=== PATIENT | female | born 1990 | race Caucasian/White ===

== ENCOUNTER 2016-10-13 16:43 | Emergency (ER) | payer BC ==
[2016-10-13 17:22] VITALS: BP 102/82
--- NOTE | 2016-10-13 17:26 | UC ---
Lower Extremity/Ankle HPI - HPI Summary HPI Summary: twisted left ankle yesterday---lateral pain, pain with walking - History of Current Complaint Chief Complaint: UCLowerExtremity Stated Complaint: LEFT ANKLE INJURY Time Seen by Provider: 10/13/16 17:20 Hx Obtained From: Patient Hx Last Menstrual Period: 09/22/16 ?: No Onset/Duration: Sudden Onset, Lasting Days - 1, Still Present Severity Initially: Moderate Severity Currently: Mild Pain Intensity: 4 Pain Scale Used: 0-10 Numeric Aggravating Factor(s): Standing, Ambulation Alleviating Factor(s): Rest, Elevation Able to Bear Weight: Yes - with discomfort - Allergies/Home Medications Allergies/Adverse Reactions: Allergies Allergy/AdvReac Type Severity Reaction Status Date / Time Clarithromycin Allergy Intermediate Rash Verified 10/13/16 17:16 CATS Allergy Mild Congestion Uncoded 10/13/16 17:16 PEANUTS Allergy Mild GI Upset Uncoded 10/13/16 17:16 SEASONAL Allergy Mild Congestion Uncoded 10/13/16 17:16 Home Medications: Home Medications Beclomethasone Dipropionate (N [Qnasl] 80 mcg NA DAILY 10/13/16 [History Confirmed 10/13/16] PMH/Surg Hx/FS Hx/Imm Hx Previously Healthy: No Endocrine History Of: Denies: Diabetes, Thyroid Disease Cardiovascular History Of: Denies: Cardiac Disorders, Hypertension Respiratory History Of: Denies: COPD, Asthma GI/ History Of: Reports: Gastroesophageal Reflux Denies: Ulcer - Surgical History Surgical History: Yes Surgery Procedure, Year, and Place: T&A, WISDOM TEETH EXTRACTION, TOOTH IMPLANT - Family History Known Family History: Positive: Hypertension - mother, Diabetes - father Negative: Cardiac Disease - Social History 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 Lives: With Family Alcohol Use: None Substance Use Type: None Smoking Status (MU): Never Smoked Tobacco Have You Smoked in the Last Year: No - Immunization History Most Recent Tetanus Shot: <5 YEARS Review of Systems Constitutional: Negative Skin: Negative Eyes: Negative ENT: Negative Respiratory: Negative Cardiovascular: Negative Gastrointestinal: Negative Genitourinary: Negative Motor: Negative Neurovascular: Negative Musculoskeletal: Arthralgia - left lateral ankle anterior to malleolus Neurological: Negative Psychological: Negative All Other Systems Reviewed And Are Negative: Yes Physical Exam Triage Information Reviewed: Yes Appearance: Well-Appearing, No Pain Distress, Well-Nourished Vital Signs: Initial Vital Signs Temp 97.8 F 10/13/16 17:18 Pulse 83 10/13/16 17:18 Resp 16 10/13/16 17:18 BP 102/82 10/13/16 17:18 Pulse Ox 99 10/13/16 17:18 Vital Signs Reviewed: Yes Eye Exam: Normal Eyes: Positive: Conjunctiva Clear ENT Exam: Normal ENT: Positive: Normal ENT inspection, Hearing grossly normal. Negative: Nasal congestion, Nasal drainage, Trismus, Muffled/hoarse voice Dental Exam: Normal Neck exam: Normal Neck: Positive: Supple, Nontender Respiratory Exam: Normal Respiratory: Positive: Chest non-tender, No respiratory distress, No accessory muscle use Cardiovascular Exam: Normal Cardiovascular: Positive: RRR, Pulses Normal, Brisk Capillary Refill Musculoskeletal Exam: Other Musculoskeletal: Positive: Strength Limited @, ROM Limited @, Edema @ - left lateral ankle Neurological Exam: Normal Neurological: Positive: Alert, Muscle Tone Normal Psychological Exam: Normal Skin Exam: Normal Diagnostics - Radiology No standard instances Xray Interpretation: No Acute Changes - soft tissue swelling Radiology Interpretation Completed By: Radiologist Lower Extremity Course/Dx - Course Course Of Treatment: lauro, gel, crutches, rice, ibuprofen, follow with Dr. Krishnamurthy - Differential Dx/Diagnosis Differential Diagnosis/HQI/PQRI: Contusion, Fracture (Closed), Sprain, Strain Provider Diagnoses: Left ankle sprain Discharge - Discharge Plan Condition: Stable Disposition: HOME Patient Education Materials: Ibuprofen (By mouth), Ankle Sprain (ED), Crutch Instructions (ED), Ankle Stirrup Splint (ED) Referrals: Ean Krishnamurthy MD [Medical Doctor] - 4 Days
--- NOTE | 2016-10-13 18:21 | RAD ---
INDICATION: Lateral ankle pain after rolling injury COMPARISON: None. TECHNIQUE: 3 views of the left ankle were obtained. FINDINGS: The well corticated bones exhibit normal alignment. Joint spaces appear maintained. No fracture is seen. IMPRESSION: Normal ankle radiograph. If the patient's symptoms persist, follow-up imaging is recommended.
== END 2016-10-13 18:47 | disposition home or self-care (01) ==
LOC: UCCORT 16:43
DX: S93.402A Sprain of unspecified ligament of left ankle, initial encounter (principal); X50.9XXA Other and unspecified overexertion or strenuous movements or postures, initial encounter
CPT/HCPCS: 84702; 99213; G0463

== ENCOUNTER 2017-11-07 20:47 | Inpatient (IN) | payer BC, MEDICAID ==
[2017-11-07] MEDS ORDERED: Nalbuphine* 10 MG/ML 1 ML VIAL IM ONE (21:25)
[2017-11-07] MEDS ORDERED: Promethazine INJ(RESTRICTED)* 25 MG/ML 1 ML VIAL IM ONE (21:25)
--- NOTE | 2017-11-07 21:36 | PN ---
L&D Outpatient: Visit - Reproductive Information Estimated Due Date: 11/08/17 Gestational Age: 39 Weeks and 6 Days : 1 - Reason for Visit Visit Reason: Pt presents for evaluation of prolonged latent labor and to discuss options for rest given no sleep x 2 days - Antepartal Records Antepartal Record: Reviewed, Uncomplicated - Patient History Patient History Significant: Yes Patient History Significant For: Hx OCD. Has used Lexapro in the past but not during Hx environmental, seasonal and food allergies L&D Outpatient: ROS - Review of Systems Constitutional: Uncomfortable - with UCs CV Complaint: No Respiratory: Shortness of Breath: No Gastrointestinal: No Nausea/Vomiting, Normal Bowel Movement Genitourinary: No Dysuria, No Bleeding, No Leaking Fluid Musculoskeletal: Contractions Movement: Normal L&D Outpatient: Exam Vitals - Most Recent: BP: 121/80 HR: 99 RR: 20 T: 97.8 O2Sat: 100% on RA - Cervical Exam Cervical Exam: 1cm/70%/vtx -2 - Abdominal Exam Abdomen Exam: Non-Tender, Fundal Height Consistent with Dates Abdomen Exam Comment: UCs q 3-7 minutes, mild to moderate - Membranes Membrane Status: Intact - Ultrasound/Biophysical Profile Ultrasound Status: Not Done L&D Outpatient: EFM - External Monitor Findings Baseline Heart Rate: 135 External Monitor Findings: Accelerations Present, No Pattern of Variable or Late Decelerations, Variability Moderate, Baseline Stable External Monitor Findings Comment: No evidence of metabolic acidemia L&D Outpatient: Asses/Plan Assessment: A: IUP at 39-6/7 with prolonged latent labor No evidence of metabolic acidemia P: Offered active management with IV pitocin and epidural vs. trial of therapeutic rest with IM Nubain/Phenergan. PARQ both options and all questions answered. At this time pt would like to try therapeutic rest and re-eval in AM unless spontaneous active labor before.
[2017-11-08] MEDS ORDERED: Promethazine INJ(RESTRICTED)* 25 MG/ML 1 ML VIAL IM ONE (04:21)
[2017-11-08] MEDS ORDERED: Nalbuphine* 10 MG/ML 1 ML VIAL IM ONE (04:21)
--- NOTE | 2017-11-08 04:30 | HP ---
General Information - General Information Maternal Age: 27 Grav: 1 Para: 0 SAB: 0 IEA: 0 Estimated Due Date: 11/08/17 Determined By: Early Ultrasound Gestational Age in Weeks and Days: 39 Weeks and 6 Days Maternal Blood Type and Rh: A Positive - Results this Serology/RPR Result: Non-Reactive Rubella Result: Immune HBsAg Result: Negative HIV Result: Negative GBS Culture Result: Negative Past Medical History Delivery History: See Records Delivery History Comment: primip Pertinent Past Medical History: See Records Past Medical History Comment: Hx of OCD. Has used Lexapro in the past but not during Environmental, seasonl and food allergies Pertinent Past Surgical History: See Records Past Surgical History Comment: 2010 [place] tooth extraction 2010 Tonsillectomy Pertinent Family History: See Records Family History Comment: Father: GERD Mother: Endometriosis Sister: ADHD Mother and father both adopted. Unknown hx for extended family - Antepartal Records Antepartal Records: Reviewed, Uncomplicated Review of Systems Constitutional: Uncomfortable - with UCs CV Complaint: No Respiratory: Shortness of Breath: No Gastrointestinal: No Nausea/Vomiting, Normal Bowel Movement Genitourinary: No Dysuria, No Bleeding, No Leaking Fluid Musculoskeletal: Contractions Neurological: No Headache, No Visual Changes Movement: Normal Exam Allergies/Adverse Reactions: Allergies clarithromycin Allergy (Intermediate, Verified 11/07/17 21:19) Rash CATS Allergy (Mild, Uncoded 11/07/17 21:19) Congestion PEANUTS Allergy (Mild, Uncoded 11/07/17 21:19) GI Upset SEASONAL Allergy (Mild, Uncoded 11/07/17 21:19) Congestion BP: 121/80 HR: 99 RR 20 T: 97.8 O2sat: 100% on RA - Measurements Height: 5 ft 5 in Weight: 158 lb Weight in lbs: 158 Body Mass Index (BMI): 26.2 Pre- Weight: 132 lb Weight Gained This : 26 lbs and 0 ozs - Exam Abdomen: No Upper Quadrant Pain Breast: Breast Exam Deferred CVA: No CVA Tenderness Extremities: No Edema Heart: Normal Rhythm/Heart Sounds HEENT: No Significant Findings Lungs: Clear Bilaterally Rectal: Rectal Exam Deferred Reflexes: DTR 2+ Thyroid: No Thyromegaly - Abdominal Exam Abdomen Exam: Non-Tender, Fundal Height Consistent with Dates - Ultrasound/Biophysical Profile Ultrasound Status: Not Done Targeted Exam Findings See L&D Outpatient Visit Provider Note for Findings: Yes Estimated Weight: EFW 7.5lbs by Endy Cervical Exam: 2cm Effacement: 90% Station: -2 Presenting Part: Vertex Membrane Status: Intact Sterile Speculum Exam: Not done Bleeding/Discharge: None EFM Findings - External Monitor Findings Baseline Heart Rate: 130 External Monitor Findings: Accelerations Present, No Pattern of Variable or Late Decelerations, Variability Moderate, Baseline Stable External Monitor Findings Comment: No evidence of metabolic acidemia Contractions: Irregular, Mild, Moderate Assessment/Plan - Reason for Visit Reason for Visit: Pt with prolonged latent labor > 24 hours. S/P therapeutic rest with Nubain and Phenergan with good benefit. Pt requests repeat dose and consider active management in the morning. - Obstetrical Risk Factors Risk Factors Comment: None - Plan Plan: Observe, Early Labor Plan Comment: Admit. Plan repeat dose of Nubain/Phenergan. Consider active management with IV pitocin/epidural of prolonged latent labor in the morning. Report to Liz Turpin CNM who will be assuming care at 0800 - Date/Time of Admission Date of Admission: 11/08/17 Time of Admission: 04:36
[2017-11-08] MEDS ORDERED: Oxytocin in LR* 20 UNITS/1,000 ML BAG IVPB ONE (11:46)
[2017-11-08] MEDS ORDERED: Oxytocin in LR* 20 UNITS/1,000 ML BAG IVPB SCH (12:00)
--- NOTE | 2017-11-08 12:05 | PN ---
Progress Note - Progress Note Date of Service: 11/08/17 SOAP: Subjective: [Pt continues to report feeling very uncomfortable with ctx, although they have spaced out. She is very anxious at the thought of going home, states "I don't think I can take another night of no sleep." Reports active FM. Denies sx SROM. Reports she noticed mucus and bloody show when wiping. ] Objective: [VSS, afebrile FHR Cat I (baseline 145, + accels, no decels, mod variability) Ctx Q 8-10 minutes, mild to moderate, last 90-120 seconds Cervical exam: 2 cm, 90%, -1, posterior, soft, Marin's score of 8] Assessment: [27 yo at 40 0/7 weeks gestation, in prolonged prodromal labor] Plan: [Discussed options with pt and at length, including discharge home to await onset of active labor versus augmentation of labor. Discussed potential risks of augmentation, including failed induction, longer length of stay. Pt expresses strong preference for staying and augmenting labor. Given that she is full term, w/ favorable Marin's score and already rosa, this seems like a reasonable option. Will do trial of Pitocin augmentation. ]
[2017-11-08 12:19] LABS: ABS Basophils 0.1 10^3/ul (0-0.2); ABS Eosinophils 0.1 10^3/ul (0-0.6); ABS Lymphocytes 1.4 10^3/ul (1.0-4.8); ABS Monocytes 0.7 10^3/ul (0-0.8); ABS Neutrophils 8.5 10^3/ul (1.5-7.7); ABS Nucleated RBC 0 10^3/ul; Eosinophil % 1.1 % (0-6); Hematocrit 36 % (35-47); Hemoglobin 12.6 g/dl (12.0-16.0); Mean Corpuscular HGB Conc 35 g/dl (31-36); Mean Corpuscular Hemoglobin 32 pg (27-31); Mean Corpuscular Volume 90 fL (80-97); Nucleated Red Blood Cells % 0; Platelet Count 270 10^3/ul (150-450); Red Blood Count 3.97 10^6/ul (4.00-5.40); Red Cell Distribution Width 12 % (10.5-15); White Blood Count 10.8 10^3/ul (3.5-10.8)
[2017-11-08] MEDS: Cetirizine* 10 MG TAB PO SCH (15:46)
[2017-11-08] MEDS ORDERED: OBEPIDURAL* 250 ML EPIDURAL ONE (15:49)
[2017-11-08] MEDS ORDERED: Sodium Citrate/Citric Acid* 15 ML UDC PO PRN (16:44)
[2017-11-08] MEDS ORDERED: EPHEDrine (Pressors)* 50 MG/ML VIAL IV PUSH PRN ×2 (16:44)
[2017-11-08] MEDS ORDERED: Phenylephrine IV* 40 MCG/ML 10 ML SYRINGE IV PUSH PRN ×2 (16:44)
[2017-11-08] MEDS ORDERED: Famotidine TAB* 20 MG PO PRN (16:44)
[2017-11-08] MEDS ORDERED: OBEPIDURAL* 250 ML EPIDURAL SCH (17:00)
[2017-11-09] MEDS ORDERED: Acetaminophen TAB* 325 MG PO PRN (05:36)
[2017-11-09] MEDS ORDERED: Glycerin ADULT SUPP PR PRN (05:36)
[2017-11-09] MEDS ORDERED: Witch Hazel PAD* JAR TOPICAL PRN (05:36)
[2017-11-09] MEDS ORDERED: Dibucaine 1% 28.35 GM TUBE PR PRN (05:36)
--- NOTE | 2017-11-09 05:58 | PROCNOTE ---
[facility] OB: Delivery Note - Delivery A Date of : 11/09/17 Time of : 04:18 Score 1 Minute: 8 Score 5 Minutes: 9 Gestational Age in Weeks and Days at Delivery: 40 Weeks and 1 Days Delivery Method: Spontaneous Vaginal Labor: Spontaneous Did Patient attempt ?: N/A, No Previous Amniotic Fluid: Clear Anesthesia/Analgesia: CEI for Labor Delivered By: Liz Madrigal - Nursery Level of Nursery: Regular/Bedside - Perineum Perineal Injury: 2nd Degree Perineal Repair: By Delivering Practioner - Events Delivery Events of Note: Pitocin During Labor - Additional Delivery Notes Additional Delivery Notes: Pt admitted to hospital in prolonged prodromal labor at 40 weeks gestation. After receiving two rounds of therapeutic rest, she had progressed to 2 cm. At that time contractions had spaced out but were still painful. Pt desired augmentation of labor, Pitocin initiated. Pt progressed in labor and after trying nonpharmacologic methods and Nitronox, pt requested and received epidural which provided good relief. Pt progressed to full dilation and initiated pushing after laboring down. Forebag ruptured during pushing. Pt pushed with good effort and after about 2 hours of pushing delivered a viable female , "October," with Apgars of 8 and 9. Pt sustained small perineal laceration and right labial laceration. Repair completed in the usual fashion with 3-0 Rapide and 4-0 Vicryl sutures with good hemostasis. During repair clots expressed from lower uterine segment. EBL 400. Pt and stable at this time, infant .
[2017-11-09] MEDS: Cetirizine* 10 MG TAB PO SCH (09:37)
[2017-11-09] MEDS: Docusate CAP* 100 MG PO SCH ×3 (09:37→20:48)
[2017-11-09] MEDS: Ibuprofen TAB* 600 MG PO PRN ×2 (09:38→16:10)
[2017-11-10] MEDS: Ibuprofen TAB* 600 MG PO PRN ×3 (03:11→19:51)
[2017-11-10 06:21] LABS: ABS Basophils 0.1 10^3/ul (0-0.2); ABS Eosinophils 0.2 10^3/ul (0-0.6); ABS Lymphocytes 1.6 10^3/ul (1.0-4.8); ABS Monocytes 0.7 10^3/ul (0-0.8); ABS Neutrophils 10.1 10^3/ul (1.5-7.7); ABS Nucleated RBC 0 10^3/ul; Eosinophil % 1.6 % (0-6); Hematocrit 27 % (35-47); Hemoglobin 9.4 g/dl (12.0-16.0); Mean Corpuscular HGB Conc 35 g/dl (31-36); Mean Corpuscular Hemoglobin 32 pg (27-31); Mean Corpuscular Volume 91 fL (80-97); Mean Platelet Volume 7.9 um3 (7.4-10.4); Nucleated Red Blood Cells % 0; Platelet Count 206 10^3/ul (150-450); Red Blood Count 2.95 10^6/ul (4.00-5.40); Red Cell Distribution Width 12 % (10.5-15); White Blood Count 12.7 10^3/ul (3.5-10.8)
[2017-11-10] MEDS: Docusate CAP* 100 MG PO SCH ×3 (08:30→19:51)
[2017-11-10] MEDS: Ferrous Gluconate TAB* 324 MG TAB PO SCH ×2 (08:30→19:51)
[2017-11-10] MEDS: Cetirizine* 10 MG TAB PO SCH (08:30)
--- NOTE | 2017-11-10 11:34 | PTEDU ---
Patient Name: JOSH MARTINEZ JOSH MARTINEZ selected video: Follow Me Mum: [facility] Successful to view on 2017 at 11:33:38 AM [id number]
[2017-11-11] MEDS: Ibuprofen TAB* 600 MG PO PRN ×2 (04:35→10:44)
[2017-11-11 08:06] VITALS: BP 107/67
[2017-11-11] MEDS: Cetirizine* 10 MG TAB PO SCH (10:45)
[2017-11-11] MEDS: Ferrous Gluconate TAB* 324 MG TAB PO SCH (10:46)
[2017-11-11] MEDS: Docusate CAP* 100 MG PO SCH (10:46)
== END 2017-11-11 11:45 | disposition home or self-care (01) | DRG 560 ==
LOC: MCHOBOUT 20:47 → MCHOB 11-08 04:23
PROVIDERS: ADMIT Midwife; ATTEND Midwife
PROC: 10E0XZZ Delivery of Products of Conception, External Approach (ICD-10-PCS; principal; 2017-11-09)
PROC: 0KQM0ZZ Repair Perineum Muscle, Open Approach (ICD-10-PCS; 2017-11-09)
DX: O63.0 Prolonged first stage (of labor) (principal); O70.1 Second degree perineal laceration during delivery; O90.81 Anemia of the puerperium; D64.9 Anemia, unspecified; Z3A.40 40 weeks gestation of pregnancy; Z37.0 Single live birth
CPT/HCPCS: 36415; 85025; 86850; 86900; 86901; A9270-GY; J2300; J2550

== ENCOUNTER 2018-10-03 17:30 | Emergency (ER) | payer BC ==
[2018-10-03 18:13] VITALS: BP 117/72
--- NOTE | 2018-10-03 18:27 | UC ---
Throat Pain/Nasal Roberto HPI - HPI Summary HPI Summary: 27-year-old woman complaining of sore throat and upper respiratory tract infection symptoms for 3 days. Throat hurts more when she swallows. Overall she feels sick. She has taken some ibuprofen which does help some with the symptoms. Her daughter has been sick and is on antibiotics. Patient breast feeds her daughter who is 11 months old. Her has also been ill for more than a week. No shortness of breath or chest congestion. - History of Current Complaint Chief Complaint: UCGeneralIllness Stated Complaint: SORE THROAT, SINUS COMPLAINT Time Seen by Provider: 10/03/18 18:03 Hx Last Menstrual Period: 09/22/16 Pain Intensity: 5 - Allergies/Home Medications Allergies/Adverse Reactions: Allergies Allergy/AdvReac Type Severity Reaction Status Date / Time clarithromycin Allergy Intermediate Rash Verified 10/03/18 18:05 CATS Allergy Mild Congestion Uncoded 10/03/18 18:05 PEANUTS Allergy Mild GI Upset Uncoded 10/03/18 18:05 SEASONAL Allergy Mild Congestion Uncoded 10/03/18 18:05 Home Medications: Home Medications Escitalopram Oxalate [Lexapro 10 mg] 10 mg PO BEDTIME 10/03/18 [History Confirmed 10/03/18] Ibuprofen TAB* [Advil TAB*] 600 mg PO Q6H PRN 10/03/18 [History Confirmed ] PMH/Surg Hx/FS Hx/Imm Hx Previously Healthy: Yes - Surgical History Surgical History: Yes Surgery Procedure, Year, and Place: T&A, WISDOM TEETH EXTRACTION, TOOTH IMPLANT - Family History Known Family History: Positive: Hypertension - mother, Diabetes - father Negative: Cardiac Disease - Social History Alcohol Use: Weekly Substance Use Type: None Smoking Status (MU): Never Smoked Tobacco Have You Smoked in the Last Year: No - Immunization History Most Recent Influenza Vaccination: 04/02/17 Most Recent Tetanus Shot: <5 YEARS Most Recent Pneumonia Vaccination: Unknown Review of Systems All Other Systems Reviewed And Are Negative: Yes Constitutional: Positive: Negative Skin: Positive: Negative Eyes: Positive: Negative ENT: Positive: Sore Throat, Nasal Discharge, Sinus Congestion Respiratory: Positive: Negative Cardiovascular: Positive: Negative Gastrointestinal: Positive: Negative Motor: Positive: Negative Neurovascular: Positive: Negative Musculoskeletal: Positive: Negative Neurological: Positive: Negative Psychological: Positive: Negative Is Patient Immunocompromised?: No Physical Exam Triage Information Reviewed: Yes Appearance: No Pain Distress, Well-Nourished, Ill-Appearing - MILD Vital Signs: Initial Vital Signs Temp 98.8 F 10/03/18 18:09 Pulse 92 10/03/18 18:09 Resp 16 10/03/18 18:09 BP 117/72 10/03/18 18:09 Pulse Ox 98 10/03/18 18:09 Vital Signs Reviewed: Yes Eye Exam: Normal Eyes: Positive: Conjunctiva Clear ENT: Positive: Pharyngeal erythema, Nasal congestion, Nasal drainage, TMs normal Neck: Positive: Supple Respiratory: Positive: Lungs clear, Normal breath sounds, No respiratory distress Cardiovascular: Positive: RRR Musculoskeletal Exam: Normal Musculoskeletal: Positive: Strength Intact, ROM Intact Neurological Exam: Normal Neurological: Positive: Alert, Muscle Tone Normal Psychological Exam: Normal Psychological: Positive: Age Appropriate Behavior Skin Exam: Normal Throat Pain/Nasal Course/Dx - Course Course Of Treatment: DISCUSSED VIRAL VERSES BACTERIAL INFECTION AND THE ROLE OF ANTIBIOTICS. THE PATIENT PREFERS TO BE ON ANTIBIOTICS AT THIS TIME. - Differential Dx/Diagnosis Provider Diagnosis: Upper respiratory infection Discharge - Sign-Out/Discharge Documenting (check all that apply): Patient Departure All imaging exams completed and their final reports reviewed: No Studies - Discharge Plan Condition: Stable Disposition: HOME Prescriptions: Amoxicillin PO (*) [Amoxicillin 875 MG (*)] 875 mg PO BID #19 tab Patient Education Materials: Upper Respiratory Infection (ED) Referrals: Elidia ADKINS,Azul Lemus [Primary Care Provider] - Additional Instructions: FOLLOW UP WITH YOUR DOCTOR IF NOT COMPLETELY IMPROVED. GET RECHECKED SOONER IF YOUR CONDITION WORSENS OR ANY QUESTIONS OR CONCERNS. - Billing Disposition and Condition Condition: STABLE Disposition: Home
[2018-10-03] MEDS ORDERED: Amoxicillin PO (*) 500 MG CAP PO ONE (18:29)
== END 2018-10-03 18:34 | disposition home or self-care (01) ==
LOC: UCCORT 17:30
DX: J06.9 Acute upper respiratory infection, unspecified (principal); J30.81 Allergic rhinitis due to animal (cat) (dog) hair and dander; J30.2 Other seasonal allergic rhinitis; Z88.1 Allergy status to other antibiotic agents; Z91.010 Allergy to peanuts
CPT/HCPCS: 99212; A9270-GY; G0463

== ENCOUNTER 2018-10-16 18:51 | Emergency (ER) | payer BC ==
[2018-10-16 19:16] VITALS: BP 125/72
--- NOTE | 2018-10-16 19:41 | UC ---
Throat Pain/Nasal Roberto HPI - HPI Summary HPI Summary: Last night had terrrible headache with sore throat. Thought it was allergies. Woke this morning feeling horrible. Feeling generally ill. Took ibuprofen around 2:45 pm, helped a little. - History of Current Complaint Chief Complaint: UCGeneralIllness Stated Complaint: ST,HAY,BODY ACHES,FEVER Time Seen by Provider: 10/16/18 19:14 Hx Obtained From: Patient Hx Last Menstrual Period: 2 years ago ?: No Onset/Duration: Sudden Onset, Lasting Days Severity: Severe Pain Intensity: 7 Associated Signs & Symptoms: Positive: Dysphagia, Fever - Allergies/Home Medications Allergies/Adverse Reactions: Allergies Allergy/AdvReac Type Severity Reaction Status Date / Time clarithromycin Allergy Intermediate Rash Verified 10/16/18 19:16 CATS Allergy Mild Congestion Uncoded 10/16/18 19:16 PEANUTS Allergy Mild GI Upset Uncoded 10/16/18 19:16 SEASONAL Allergy Mild Congestion Uncoded 10/16/18 19:16 PMH/Surg Hx/FS Hx/Imm Hx Previously Healthy: Yes - Surgical History Surgical History: Yes Surgery Procedure, Year, and Place: T&A, WISDOM TEETH EXTRACTION, TOOTH IMPLANT - Family History Known Family History: Positive: Hypertension - mother, Diabetes - father Negative: Cardiac Disease - Social History Alcohol Use: Weekly Substance Use Type: None Smoking Status (MU): Never Smoked Tobacco Have You Smoked in the Last Year: No - Immunization History Most Recent Influenza Vaccination: 04/02/17 Most Recent Tetanus Shot: <5 YEARS Most Recent Pneumonia Vaccination: Unknown Review of Systems All Other Systems Reviewed And Are Negative: Yes Constitutional: Positive: Fever, Fatigue ENT: Positive: Sore Throat Respiratory: Positive: Cough Neurological: Positive: Headache Is Patient Immunocompromised?: No Physical Exam Triage Information Reviewed: Yes Appearance: Well-Nourished, Ill-Appearing, Pain Distress Vital Signs: Initial Vital Signs Temp 101.0 F 10/16/18 19:11 Pulse 101 10/16/18 19:11 Resp 18 10/16/18 19:11 BP 125/72 10/16/18 19:11 Pulse Ox 100 10/16/18 19:11 Vital Signs Reviewed: Yes Eye Exam: Normal ENT: Positive: Pharyngeal erythema, TM bulging, Tonsillar swelling Dental Exam: Normal Neck exam: Normal Respiratory Exam: Normal Respiratory: Positive: Chest non-tender, Lungs clear, Normal breath sounds Cardiovascular Exam: Normal Cardiovascular: Positive: No Murmur, Pulses Normal, Tachycardia Abdominal Exam: Normal Musculoskeletal Exam: Normal Neurological Exam: Normal Psychological Exam: Normal Skin Exam: Normal Throat Pain/Nasal Course/Dx - Course Course Of Treatment: hx obtained, exam performed ,meds reviewed, rapid strep obtained and was negative, rapid flu obtained and was neagtive, treated for sinusitis and recommend follow up if not improving. - Differential Dx/Diagnosis Differential Diagnosis/HQI/PQRI: Influenza, Laryngitis, Pharyngitis, Sinusitis Provider Diagnosis: Sinusitis Discharge - Sign-Out/Discharge Documenting (check all that apply): Patient Departure All imaging exams completed and their final reports reviewed: No Studies - Discharge Plan Condition: Stable Disposition: HOME Prescriptions: Azithromycin TAB* [Zithromax TAB (Z-MARTINE) 250 mg #6 tabs] 250 mg PO DAILY #4 tab Patient Education Materials: Sinusitis (ED) Referrals: Elidia ADKINS,Azul Lemus [Primary Care Provider] - Additional Instructions: 1. take the medication as prescribed. 2. Salt water gargles and nasal saline spray 3. Increase fluids and get rest. 4. Follow up if needed. - Billing Disposition and Condition Condition: STABLE Disposition: Home - Attestation Statements Provider Attestation: I was available for consult. This patient was seen by the PRIYANKA. The patient was not presented to, seen by, or examined by me. -Aleida
[2018-10-16 20:20] LABS: Influenza A Molecular NEGATIVE (Negative); Influenza B Molecular NEGATIVE (Negative)
== END 2018-10-16 20:32 | disposition home or self-care (01) ==
LOC: UCCORT 18:51
DX: J32.9 Chronic sinusitis, unspecified (principal); Z88.1 Allergy status to other antibiotic agents; Z91.010 Allergy to peanuts; Z91.09 Other allergy status, other than to drugs and biological substances
CPT/HCPCS: 87651; 99212; G0463

== ENCOUNTER 2019-11-09 12:35 | Inpatient (IN) ==
[2019-11-09] MEDS ORDERED: Lactated Ringers 1000 ml BAG 1,000 ML IV ONE (13:19)
[2019-11-09] MEDS ORDERED: Lactated Ringers 1000 ml BAG 1,000 ML IV SCH (14:00)
[2019-11-09] MEDS ORDERED: Oxytocin in LR 20 UNITS/1,000 ML BAG IVPB SCH (14:00)
[2019-11-09 14:01] LABS: ABS Eosinophils 0.2 10^3/ul (0-0.6); ABS Lymphocytes 1.4 10^3/ul (1.0-4.8); ABS Monocytes 0.5 10^3/ul (0-0.8); Eosinophil % 3.1 %; Hematocrit 30 % (35-47); Hemoglobin 10.2 g/dL (12.0-16.0); Lymphocyte % 17.6 %; Mean Corpuscular HGB Conc 34 g/dL (31-36); Mean Corpuscular Hemoglobin 28 pg (27-31); Mean Corpuscular Volume 81 fL (80-97); Mean Platelet Volume 8.1 fL (7.4-10.4); Platelet Count 270 10^3/uL (150-450); Red Blood Count 3.73 10^6 /uL (3.70-4.87); Red Cell Distribution Width 15 % (10-15); White Blood Count 7.7 10^3/uL (3.5-10.8)
[2019-11-09 14:32] LABS: Urine Benzodiazepine Screen None Detected (None Detect); Urine Opiates Screen None Detected (None Detect)
[2019-11-10] MEDS ORDERED: Dibucaine 1% OINT 28.35 GM TUBE PR PRN (02:59)
[2019-11-10] MEDS ORDERED: Witch Hazel PAD JAR TOPICAL PRN (02:59)
[2019-11-10] MEDS ORDERED: Glycerin ADULT 2.4 gm SUPP PR PRN (02:59)
[2019-11-10] MEDS ORDERED: Tetan/Diph/Pertus SYR(Tdap)* 0.5 ML SYR(BOOSTRIX) use SYR contains LATEX IM ONE (02:59)
[2019-11-10] MEDS ORDERED: Lactated Ringers 1000 ml BAG 1,000 ML IV SCH (03:00)
[2019-11-10] MEDS ORDERED: Oxytocin in LR 20 UNITS/1,000 ML BAG IVPB SCH (03:00)
[2019-11-10] MEDS ORDERED: Lidocaine 1% VIAL 10 MG/ML VIAL ONE (05:28)
[2019-11-11 07:44] VITALS: BP 105/65
[2019-11-11 07:46] LABS: ABS Eosinophils 0.2 10^3/ul (0-0.6); ABS Lymphocytes 1.6 10^3/ul (1.0-4.8); ABS Monocytes 0.5 10^3/ul (0-0.8); Eosinophil % 2.8 %; Hematocrit 27 % (35-47); Hemoglobin 9.3 g/dL (12.0-16.0); Lymphocyte % 18.3 %; Mean Corpuscular HGB Conc 34 g/dL (31-36); Mean Corpuscular Hemoglobin 28 pg (27-31); Mean Corpuscular Volume 82 fL (80-97); Mean Platelet Volume 7.8 fL (7.4-10.4); Nucleated Red Blood Cells % 0.1; Platelet Count 235 10^3/uL (150-450); Red Blood Count 3.33 10^6 /uL (3.70-4.87); Red Cell Distribution Width 15 % (10-15); White Blood Count 8.5 10^3/uL (3.5-10.8)
== END 2019-11-11 12:04 | disposition home or self-care (01) | DRG 560 ==
LOC: MCHOBOUT 12:35 → MCHOB 13:19
PROVIDERS: ADMIT Midwife; ATTEND Midwife